=== PATIENT | male | born 2000 | race Two or more races ===

== ENCOUNTER 2024-11-25 09:33 | Emergency (ER) | payer OTHER ==
[~2024-11-25] VITALS: Ht 165.1 cm; Wt 83.9 kg
[2024-11-25] MEDS ORDERED: HUMIRA PEN40 MG/0.2 SQ (10:15)
[2024-11-25] MEDS ORDERED: FAMOTIDINE/PF 20 MG/2 ML VIAL ONE (11:53)
[2024-11-25] MEDS ORDERED: ONDANSETRON HCL 2 MG/ML VIAL ONE (11:53)
[2024-11-25] MEDS ORDERED: ONDANSETRON HCL 2 MG/ML VIAL IV ONE (12:00)
[2024-11-25] MEDS ORDERED: 0.9 % SODIUM CHLORIDE 1,000 ML IV ONE (12:00)
[2024-11-25] MEDS ORDERED: FAMOtidine 10 MG/ML (4ML VIAL) IV ONE (12:00)
[2024-11-25 12:03] LABS: BASO % 0.3 % (0.1-1.2); EOS # 0.07 (0.04-0.54); EOS % 1.1 % (0.7-7.0); LYMPH # 1.88 (1.18-3.74); LYMPH % 28.9 % (19.3-53.1); MEAN PLATELET VOLUME 8.80 fl (9.4-12.4); MONO # 0.81 (0.24-0.82); NEUT # 3.72 (1.56-6.13); NEUT % 57.1 % (34.0-71.1); RED CELL DISTRIBUTION WIDTH 11.9 % (11.6-14.4)
[2024-11-25 12:06] LABS: MONO % 12.4 % (4.7-12.5)
[2024-11-25 12:37] LABS: ALT/SGPT 26.0 U/L (12-78); AST/SGOT 14.0 U/L (15-37); BILIRUBIN TOTAL 0.71 mg/dL (0.3-1.2); BUN CREA RATIO 8.0 (7.0-25.0); CREATININE SERUM 0.95 mg/dL (0.70-1.30); GFR 95.83; GLOBULINA 4.6 G/DL (2.4-3.5); GLUCOSE FASTING 100.0 mg/dL (65-100); OSMOLALITY SERUM 278.0 MOSM/KG (275-295)
[2024-11-25] MEDS ORDERED: METRONIDAZOLE500 MG PO (14:38)
[2024-11-25] MEDS ORDERED: CIPRO500 MG PO (14:38)
[2024-11-25] MEDS ORDERED: CIPROFLOXACIN IN 5 % DEXTROSE 400 MG/200 ML PIGGYBAG IV ONE ×2 (14:42→14:45)
[2024-11-25] MEDS ORDERED: METHYLPREDNISOLONE SOD SUCC 125 MG VIAL ONE (14:43)
[2024-11-25] MEDS ORDERED: METRONIDAZOLE/SODIUM CHLORIDE 500 MG/100 ML PIGGYBACK IV ONE ×2 (14:43→14:45)
[2024-11-25] MEDS ORDERED: METHYLPREDNISOLONE SOD SUCC 125 MG VIAL IV ONE (14:45)
== END 2024-11-25 17:50 | disposition home or self-care (01) ==
LOC: ER 09:34
PROVIDERS: Preventive Medicine Public Health & General Preventive Medicine
DX: K50.10 Crohn's disease of large intestine without complications (principal)